=== PATIENT | female | born 1990 | race Caucasian/White ===

== ENCOUNTER 2017-09-10 20:20 | Inpatient (IN) | payer BC ==
[2017-09-10] MEDS ORDERED: Misoprostol 200 MCG Tab PO PRN (20:29)
[2017-09-10] MEDS ORDERED: Methylergonovine 0.2 MG/1 ML Amp IM PRN (20:29)
[2017-09-10] MEDS ORDERED: Carboprost Tromethamine 250 MCG/1 ML Amp IM PRN (20:29)
[2017-09-10] MEDS ORDERED: Terbutaline 1 MG/ML SDV SUBCUT PRN (20:29)
[2017-09-10] MEDS ORDERED: Water For Irrigation,Sterile 1,000 ML Container IRR PRN (20:29)
[2017-09-10] MEDS ORDERED: Butorphanol 1 MG/ML SDV IVPUSH PRN (20:29)
[2017-09-10] MEDS ORDERED: Lidocaine 1% 50 ML MDV INJECT PRN (20:29)
[2017-09-10] MEDS ORDERED: Sodium Chloride 0.9% 10 ML Syringe FLUSH PRN (20:29)
[2017-09-10] MEDS ORDERED: Nalbuphine 10 MG/1 ML Vial IVPUSH PRN (20:29)
[2017-09-10] MEDS ORDERED: Sodium Chloride 0.9% 2.5 ML Syringe FLUSH PRN (20:29)
[2017-09-10] MEDS ORDERED: Oxytocin/0.9 % Sodium Chloride 30 UNIT/500 ML BAG IV SCH ×2 (20:30)
[2017-09-10] MEDS: Lactated Ringers 1,000 ML IV SCH ×2 (20:50→23:40)
[2017-09-11] MEDS ORDERED: Ibuprofen 800 MG Tab ONE (01:10)
[2017-09-11] MEDS ORDERED: Lanolin 100% Cream 7 GM Tube TOP PRN (01:20)
[2017-09-11] MEDS ORDERED: Witch Hazel Medicated Pads 40/Jar TOP PRN (01:20)
[2017-09-11] MEDS ORDERED: Acetaminophen 500 MG Tab PO PRN ×2 (01:20)
[2017-09-11] MEDS ORDERED: Benzocaine/Menthol 20%-0.5% Spray 78 GM Cannister TOP PRN (01:20)
[2017-09-11] MEDS ORDERED: Bisacodyl 10 MG Supp RECTAL PRN (01:20)
[2017-09-11] MEDS ORDERED: oxyCODONE 5 MG Tab PO PRN (01:20)
[2017-09-11] MEDS ORDERED: Ibuprofen 400 MG Tab PO PRN (01:20)
[2017-09-11] MEDS ORDERED: Docusate Sodium 100 MG Cap PO PRN (01:20)
--- NOTE | 2017-09-11 02:42 | OR ---
SURGEON: Sheridan Sheth MD DATE OF PROCEDURE: 09/11/2017 PREOPERATIVE DIAGNOSES: 1. Term at 39 weeks and 1 day. 2. Small for Gestational Age fetus, SGA POSTOPERATIVE DIAGNOSES: 1. Term at 39 weeks and 1 day. 2. Precipitate labor 3. Delivered. PROCEDURE: Spontaneous vaginal delivery. ANESTHESIA: None. ESTIMATED BLOOD LOSS: 150 mL. COMPLICATIONS: None. DISPOSITION: Mother and baby stable in Labor and Delivery room, bonding. FINDINGS: Female , Weight 3160 grams, scores 7 and 9 at 1 and 5 minutes respectively. Grossly normal placenta with three-vessel cord. Intact perineum. BRIEF HISTORY: Ann is a G2, P1, who was admitted at 39 weeks' gestation for induction of labor secondary to small for gestational age fetus, SGA on ultrasound found during her routine antepartum visit, 2 days ago. The EFW was on the 15th percentile, with abdominal circumference on < 3rd percentile for gestational age. Biophysical profile and NST was normal. GBS negative. She presented for induction of labor late evening of 09/10. At that time, she was found to be 4 cm dilated, 70% effaced, station -3. Intact membranes with no contractions on the monitor. Induction was commenced with Oxytocin. After spontaneous rupture of membranes, clear fluid, occurred at midnight at 5cm , she progressed rather fast becoming fully dilated within 30mins. And with strong urge to push she was set up for delivery. She had progressed to full dilatation within 3 hours of presentation for the labor and delivery. Maximum dose of oxytocin was 10 milliunits per minute. heart tracing remained Category 1 tracing. DESCRIPTION OF PROCEDURE: She had a spontaneous vaginal delivery of a live female infant in direct occipito- anterior position at 00:45hours, loose nuchal cord was easily reduced with clear amniotic fluid at delivery. Anterior and posterior shoulders were delivered and the rest of the baby was delivered without difficulty. The baby was vigorous and was delivered onto the maternal abdomen with the nursery nurse in attendance. Delayed cord clamping was performed and the cord was subsequently cut by the father of the baby. With delivery of the infant , oxytocin infusion was converted to titration for active management of third stage of labor. Cord blood and gas samples were obtained. Placenta was delivered by controlled cord traction, appeared to be complete and intact. Examination of the perineum revealed no lacerations. Uterine massage was performed. Uterus was found to be well-contracted below the umbilicus. The patient tolerated the procedure well. Sponge, instrument, and needle counts were correct at the end of the delivery. NATE / IGNACIO /[id number] MTDD
[2017-09-11] MEDS: Ibuprofen 800 MG Tab PO PRN ×2 (07:22→13:12)
[2017-09-12 07:51] VITALS: BP 112/73
--- NOTE | 2017-09-12 12:03 | PCM.PNPP ---
- General Info Date of Service: 09/12/17 Functional Status: Reports: Pain Controlled, Tolerating Diet, Ambulating, Urinating - Review of Systems General: Denies: Fever, Fatigue, Malaise, Chills HEENT: Denies: Headaches, Visual Changes Pulmonary: Denies: Shortness of Breath, Pleuritic Chest Pain, Cough Cardiovascular: Denies: Chest Pain, Palpitations, Dyspnea on Exertion Gastrointestinal: Denies: Abdominal Pain Genitourinary: Denies: Dysuria, Frequency, Incontinence, Retention Psychiatric: Denies: Depression, Mood Lability, Anxiety - General Info Date of Service: 09/12/17 - Patient Data Vital Signs - Most Recent: Last Vital Signs Temp 36.6 C 09/12/17 07:00 Pulse 80 09/12/17 07:00 Resp 16 09/12/17 07:00 BP 112/73 09/12/17 07:00 Pulse Ox 97 09/12/17 07:00 Weight - Most Recent: 170 lb Lab Results - Last 24 Hours: Laboratory Results - last 24 hr 09/12/17 Range/Units 05:12 Hgb 12.0 (12.0-16.0) g/dL Hct 37.0 (36.0-46.0) % Med Orders - Current: Current Medications Acetaminophen (Tylenol Extra Strength) 500 mg PO Q4H PRN PRN Reason: Pain Acetaminophen (Tylenol Extra Strength) 1,000 mg PO Q4H PRN PRN Reason: Pain Benzocaine/Menthol (Dermoplast Pain Relief 20%-0.5% [place]) 78 gm TOP ASDIRECTED PRN PRN Reason: Perineal Comfort Measure Bisacodyl (Dulcolax) 10 mg RECTAL .ONCE PRN PRN Reason: Constipation Docusate Sodium (Colace) 100 mg PO BID PRN PRN Reason: Constipation Emollient Ointment (Lansinoh Hpa) 0 gm TOP ASDIRECTED PRN PRN Reason: Sore Nipples Ibuprofen (Motrin) 400 mg PO Q4H PRN PRN Reason: Pain Ibuprofen (Motrin) 800 mg PO Q6H PRN PRN Reason: Pain Last Admin: 09/11/17 13:12 Dose: 800 mg Oxycodone HCl (Oxycodone) 5 mg PO Q2H PRN PRN Reason: Pain Witch Raquel (Tucks) 1 pad TOP ASDIRECTED PRN PRN Reason: comfort care Discontinued Medications Butorphanol Tartrate (Stadol) 1 mg IVPUSH Q1H PRN PRN Reason: Pain Carboprost Tromethamine (Hemabate Ds) 250 mcg IM ASDIRECTED PRN PRN Reason: Post Hemorrhage Lactated Ringer's (Ringers, Lactated) 1,000 mls @ 150 mls/hr IV ASDIRECTED WOODY Last Admin: 09/10/17 23:40 Dose: 150 mls/hr Oxytocin/Sodium Chloride (Oxytocin 30 Unit/500 Ml-Ns) 30 unit in 500 mls @ 999 mls/hr IV TITRATE WOODY Oxytocin/Sodium Chloride (Oxytocin 30 Unit/500 Ml-Ns) 30 unit in 500 mls @ 2 mls/hr IV TITRATE WOODY; 2 MUNITS/MIN PRN Reason: Protocol Last Titration: 09/10/17 23:39 Dose: 8 munits/min, 8 mls/hr Ibuprofen (Motrin) Confirm Administered Dose 800 mg .ROUTE .[facility] Stop: 09/11/17 01:11 Last Admin: 09/11/17 03:36 Dose: 800 mg Lidocaine HCl (Xylocaine 1%) 50 ml INJECT .ONCE PRN PRN Reason: Laceration repair Methylergonovine Maleate (Methergine) 0.2 mg IM ASDIRECTED PRN PRN Reason: Post Hemorrhage Misoprostol (Cytotec) 200 mcg PO .ONCE PRN PRN Reason: Post Hemorrhage Nalbuphine HCl (Nubain) 10 mg IVPUSH Q1H PRN PRN Reason: Pain (severe 7-10) Sodium Chloride (Saline Flush) 10 ml FLUSH ASDIRECTED PRN PRN Reason: Keep Vein Open Sodium Chloride (Saline Flush) 2.5 ml FLUSH ASDIRECTED PRN PRN Reason: Keep Vein Open Sterile Water (Sterile Water For Irrigation) 1,000 ml IRR ASDIRECTED PRN PRN Reason: delivery Last Admin: 09/11/17 01:14 Dose: 1,000 ml Terbutaline Sulfate (Brethine) 0.25 mg SUBCUT ASDIRECTED PRN PRN Reason: Tacysystole - Interaction Disposition, : in Room with Family Infant Interaction: Holding Infant Infant Feeding: Continues to Breastfeed Support Person: - Recovery Exam Fundal Tone: Firm Fundal Level: 2 Fingerbreadths Below Umbilicus Fundal Placement: Midline Lochia Amount: Scant Lochia Color: Rubra/Red Perineum Description: Intact, Minimal Bruising/Swelling Bladder Status: Voiding Urinary Elimination: Voided - Exam General: Alert, Oriented HEENT: Pupils Equal Lungs: Clear to Auscultation, Normal Respiratory Effort Cardiovascular: Regular Rate, Regular Rhythm GI/Abdominal Exam: Non-Tender Extremities: Non-Tender, Pedal Edema Psy/Mental Status: Alert, Normal Affect, Normal Mood - Problem List & Annotations (1) Vaginal delivery SNOMED Code(s): 326950057 Code(s): O80 - ENCOUNTER FOR FULL-TERM UNCOMPLICATED DELIVERY Status: Acute Current Visit: No - Problem List Review Problem List Initiated/Reviewed/Updated: Yes - Assessment Assessment:: PPD#1 s/p , stable and afebrile Clinically stable for discharge - Plan Plan:: Discharge instructions reviewed with patient Nothing in the vagina for 6 weeks Bleeding and infection control reviewed depression symptoms reviewed Continue PNV May use OTC medications for pain control Follow up in 6weeks
== END 2017-09-12 15:18 | disposition home or self-care (01) | DRG 863 ==
LOC: MW.OBCHECK 20:20 → MW.OB 20:20 → MW.OBCHECK 20:29 → MW.OB 20:29 → OBSVTOIN 09-11 00:45 → MW.OB 09-11 02:20
PROVIDERS: ADMIT Obstetrics & Gynecology; ATTEND Obstetrics & Gynecology
PROC: 10E0XZZ Delivery of Products of Conception, External Approach (ICD-10-PCS; principal; 2017-09-11)
PROC: 3E0P3VZ Introduction of Hormone into Female Reproductive, Percutaneous Approach (ICD-10-PCS; 2017-09-11)
DX: P05.19 Newborn small for gestational age, other (principal); O62.3 Precipitate labor; Z3A.39 39 weeks gestation of pregnancy; Z37.0 Single live birth
CPT/HCPCS: 36415; 59025; 59409; 85014; 85018; 85027; 86850; 86900; 86901; 88307; A9270-GY; J2590; J7120

== ENCOUNTER 2017-10-08 23:58 | Emergency (ER) | payer BC ==
--- NOTE | 2017-10-09 00:30 | EDM.PDOC ---
ED HPI GENERAL MEDICAL PROBLEM - General Chief Complaint: Headache Stated Complaint: PAIN HEAD/HEADACHES Time Seen by Provider: 10/09/17 00:30 Source of Information: Reports: Patient - History of Present Illness INITIAL COMMENTS - FREE TEXT/NARRATIVE: HISTORY AND PHYSICAL: History of present illness: [Patient complains of headache since last night after a piece of wood/plywood fell landing on her head described as an axial load type injury she has 4 out of 5 no pain with associated headaches since. No fever nausea vomiting diarrhea constipation chest pain shortness breath dizziness or palpitation no bowel or urine symptoms no loss of consciousness after episode ] Review of systems: As per history of present illness and below otherwise all systems reviewed and negative. Past medical history: As per history of present illness and as reviewed below otherwise noncontributory. Surgical history: As per history of present illness and as reviewed below otherwise noncontributory. Social history: No reported history of drug or alcohol abuse. Family history: As per history of present illness and as reviewed below otherwise noncontributory. Physical exam: HEENT: Atraumatic, normocephalic, pupils reactive, negative for conjunctival pallor or scleral icterus, mucous membranes moist, throat clear, neck supple, nontender, trachea midline. Lungs: Clear to auscultation, breath sounds equal bilaterally, chest nontender. Heart: S1S2, regular, negative for clicks, rubs, or JVD. Abdomen: Soft, nondistended, nontender. Negative for masses or hepatosplenomegaly. Negative for costovertebral tenderness. Pelvis: Stable nontender. Genitourinary: Deferred. Rectal: Deferred. Extremities: Atraumatic, negative for cords or calf pain. Neurovascular unremarkable. Neuro: Awake, alert, oriented. Cranial nerves II through XII unremarkable. Cerebellum unremarkable. Motor and sensory unremarkable throughout. Exam nonfocal. Diagnostics: []HCG Head CT no contrast Cervical spine no contrast Therapeutics: []Rest ice ibuprofen Impression: []Headache Concussion Cervical paraspinous muscle spasm on right Definitive disposition and diagnosis as appropriate pending reevaluation and review of above. head area Pain Score (Numeric/FACES): 5 - Related Data Allergies Allergy/AdvReac Type Severity Reaction Status Date / Time No Known Allergies Allergy Verified 10/09/17 00:04 Home Meds: Home Meds Pnv No.121/Iron/Folic Acid [ Multivitamin Tablet] 1 tab PO DAILY [History] Past Medical History - Past Health History Medical/Surgical History: Denies Medical/Surgical History HEENT History: Reports: None Cardiovascular History: Reports: None Respiratory History: Reports: None Gastrointestinal History: Reports: GERD Genitourinary History: Reports: None [employer] History: Reports: Musculoskeletal History: Reports: None Neurological History: Reports: None Psychiatric History: Reports: None Endocrine/Metabolic History: Reports: None Hematologic History: Reports: None Immunologic History: Reports: None Oncologic (Cancer) History: Reports: None Dermatologic History: Reports: None - Infectious Disease History Infectious Disease History: Reports: None - Past Surgical History Head Surgeries/Procedures: Reports: None Social & Family History - Family History Family Medical History: Noncontributory Cardiac: Reports: Arrhythmia OBGYN: Reports: - Tobacco Use Smoking Status *Q: Never Smoker Second Hand Smoke Exposure: No - Caffeine Use Caffeine Use: Reports: Coffee, Soda - Recreational Drug Use Recreational Drug Use: No ED ROS GENERAL - Review of Systems Review Of Systems: ROS reveals no pertinent complaints other than HPI. ED EXAM, GENERAL - Physical Exam Exam: See Below Course - Vital Signs Last Recorded V/S: Last Vital Signs Temp 97.6 F 10/09/17 00:06 Pulse 73 10/09/17 00:06 Resp 18 10/09/17 00:06 BP 132/93 H 10/09/17 00:06 Pulse Ox 98 10/09/17 00:06 - Orders/Labs/Meds Orders: Active Orders 24 hr Category Date Time Status Cervical Spine wo Cont [CT] Stat Exams 10/09/17 00:13 Taken Head wo Cont [CT] Stat Exams 10/09/17 00:13 Taken Departure - Departure Time of Disposition: 01:59 Disposition: Home, Self-Care 01 Condition: Good Clinical Impression: Concussion - Discharge Information Referrals: PCP,None [Primary Care Provider] - Forms: ED Department Discharge Additional Instructions: Ibuprofen 400 mg 3 times daily as needed 7-10 days Return if symptoms persist or worsen or new concerning symptoms develop Follow-up with primary care in 2 weeks The following information is given to patients seen in the emergency department who are being discharged to home. This information is to outline your options for follow-up care. We provide all patients seen in our emergency department with a follow-up referral. The need for follow-up, as well as the timing and circumstances, are variable depending upon the specifics of your emergency department visit. If you don't have a primary care physician on staff, we will provide you with a referral. We always advise you to contact your personal physician following an emergency department visit to inform them of the circumstance of the visit and for follow-up with them and/or the need for any referrals to a consulting specialist. The emergency department will also refer you to a specialist when appropriate. This referral assures that you have the opportunity for follow-up care with a specialist. All of these measure are taken in an effort to provide you with optimal care, which includes your follow-up. Under all circumstances we always encourage you to contact your private physician who remains a resource for coordinating your care. When calling for follow-up care, please make the office aware that this follow-up is from your recent emergency room visit. If for any reason you are refused follow-up, please contact the [facility] emergency department at and asked to speak to the emergency department charge nurse. - My Orders Last 24 Hours: My Active Orders 10/09/17 00:13 Cervical Spine wo Cont [CT] Stat Head wo Cont [CT] Stat - Assessment/Plan Last 24 Hours: My Active Orders 10/09/17 00:13 Cervical Spine wo Cont [CT] Stat Head wo Cont [CT] Stat
[2017-10-09 02:12] VITALS: BP 119/81
--- NOTE | 2017-10-11 13:19 | CT ---
EXAM DATE: 10/08/17 PATIENT'S AGE: 27 Patient: NIK PARKS Facility: [place], [place] Site . Site : 1990 Study: CT Head [id number] 1:40:42 AM Ordering Physician: Doctor Fleming Final Report: INDICATION: Injury TECHNIQUE: CT head without contrast. COMPARISON: None available FINDINGS: The ventricles and sulci demonstrate normal configuration and size. There is no mass effect or midline shift. There is mild tonsillar ectopia. There is no loss of ireland-white differentiation. There is no evidence of a gross acute intracranial hemorrhage. No acute calvarial fracture is seen. There is a small mucosal retention cyst or polyp in the right maxillary sinus. The mastoid air cells are clear. The visualized orbits are within normal limits. IMPRESSION: No evidence of a gross acute intracranial hemorrhage, mass effect or loss of ireland-white differentiation. Dictated by Ricky Purcell MD @ 10/09/2017 1:51:21 AM Dictated by: Ricky Purcell MD @ 10/09/2017 01:51:28 (Electronic Signature) Report Signed by Proxy. CY
--- NOTE | 2017-10-11 13:20 | CT ---
EXAM DATE: 10/08/17 PATIENT'S AGE: 27 Patient: NIK PARKS Facility: [place], [place] Site . Site : 1990 Study: CT Spine Cervical [id number] 1:41:26 AM Ordering Physician: Doctor Fleming Final Report: INDICATION: Injury TECHNIQUE: CT cervical spine without contrast. COMPARISON: None available FINDINGS: There is straightening of the cervical lordosis. The craniocervical and atlantoaxial alignments are near anatomical. There is no evidence of an acute cervical spine fracture. There is no significant precervical soft tissue swelling. There is a small calcified left upper lobe pulmonary granuloma. IMPRESSION: No evidence of an acute cervical spine fracture. Dictated by Ricky Purcell MD @ 10/09/2017 1:56:50 AM Dictated by: Ricky Purcell MD @ 10/09/2017 01:56:57 (Electronic Signature) Report Signed by Proxy. CY
== END 2017-10-09 02:10 | disposition home or self-care (01) ==
LOC: MW.ED 23:58
DX: S06.0X0A Concussion without loss of consciousness, initial encounter (principal); M62.838 Other muscle spasm; W20.8XXA Other cause of strike by thrown, projected or falling object, initial encounter
CPT/HCPCS: 70450; 70450-26; 72125; 72125-26; 99282; 99284-25